=== PATIENT | male | born 1955 | race African-American/Black ===

== ENCOUNTER → 2016-08-27 | Outpatient (CLI) | payer OTHER ==
--- NOTE | 2016-08-27 15:51 | Diagnostic Imaging Report ---
Indications: Neck pain, right-sided weakness, status post multilevel cervical fusion one day prior Technique: Sagittal STIR and T1-weighted FLAIR, sagittal and axial T2-weighted fast spin echo , and axial COSMIC ASPIR sequences of the cervical spine were performed without gadolinium administration. Findings: Comparison: None Fusion hardware is present within the C3-4 through C6-7 disc spaces. These levels are bridged by fixation plate and multiple anchoring screws anteriorly. Bilateral pedicle screws are present from C3-C7. Laminectomy defects are present from C3-C7. Cervical vertebrae are normally aligned. Marrow signal is difficult to assess due to artifact from metallic fusion hardware. The overlying prevertebral and posterior paraspinous soft tissues are mildly edematous. The spinal canal appears diffusely, congenitally narrowed. There is no focal point of narrowing at any level. 2 mm sharply defined focus of increased signal is present within the right side of the spinal cord at the C3-4 level. 7 mm lobular circumscribed focus of increased signal is present throughout much of the right side of the spinal cord at the level of C5. There is suggestion of mild expansion of this portion of the cord at this level. The cord is abutted ventrally at C3-4 but not obviously compressed. It does not appear compressed at any additional imaged levels. No extradural mass or fluid collection identified. Impression: Evidence of anterior-posterior fusion C3-C7. Adjacent soft tissue edema within normal limits for recent postsurgical state. Diffuse congenital spinal stenosis without obvious focal cord compression 7 mm globular focus of signal hyperintensity within the right side of the cord at the C5 level with possible mild cord expansion. No prior examinations available for comparison. This nonspecific and could represent edema from contusion or ischemia/infarct. Inflammatory, chronic ischemic or demyelinating lesion less likely. Mass less likely, though not entirely excludable. Small discrete focus of signal change in right-sided cord at C3-4, chronic in appearance, may be secondary to previous infarct, chronic sequela of previous compression, or demyelination. Findings discussed with Dr. Ceja, ordering surgeon, in person at time of this dictation
--- NOTE | 2016-08-27 16:14 | Diagnostic Imaging Report ---
Indications: New-onset right-sided weakness, status post multilevel cervical fusion one day prior Technique: Continuous helical CT imaging of the neck was performed with automatic exposure control, following bolus intravenous administration of nonionic iodine contrast a rate of 4 cc/sec, on a Siemens sensation [address] scanner. Axial images were reconstructed at 5 mm slice thickness and interval. Thin section axial data set was reconstructed at one mm slice thickness. Coronal and sagittal images were reconstructed at one mm slice thickness. Three-dimensional volume rendered images were reconstructed on a stand alone workstation. CTDI volume(s): 17x5, 132, 69 mGy Total DLP: 2935 mGy-cm Findings: Comparison: None Artifact from the patient's body habitus and cervical fusion hardware significantly degrades multiple images, limiting evaluation. Aortic arch patent and well-opacified, normal in caliber and configuration. Great vessels emanate from the arch normal order. Origin of left common carotid artery completely obscured. Right brachiocephalic artery, proximal aspects of right common carotid, bilateral subclavian arteries partially obscured. Origins of multiple segments of bilateral vertebral arteries completely obscured. Where unobscured, the bilateral common carotid and vertebral arteries are patent and well-opacified, normal caliber in configuration. Bilateral internal and external arteries are likewise patent and well-opacified, normal in caliber and configuration. Where unobscured, no evidence of stenosis, dissection, or other intraluminal filling defect, aneurysm/pseudoaneurysm or other abnormality. Impression: Negative cervical CT angiogram, with limitations as described
--- NOTE | 2016-08-27 16:23 | Diagnostic Imaging Report ---
Indications: Right-sided weakness Technique: Sagittal and axial T1 weighted FLAIR, axial T2-weighted fat saturated fast spin echo propeller, T2-weighted FLAIR, T2*-weighted gradient echo, and diffusion sequences of the brain were performed without IV gadolinium administration. Findings: Comparison: None Patient's body habitus degrades image quality, limiting evaluation. Patchy, partially confluent foci of T2 signal hyperintensity scattered throughout bilateral cervical periventricular and deep white matter. Similar foci in flako.. No evidence of mass or hemorrhage, other signal abnormality, mass effect, midline shift, hydrocephalus, or increased intracranial pressure. No restricted diffusion. Central vascular flow voids are preserved. Mild mucoperiosteal thickening throughout visualized paranasal sinuses. IMPRESSION: No evidence of acute intracranial pathology Multifocal white matter signal changes described, nonspecific, likely chronic microvascular ischemic Mild sinusitis.
--- NOTE | 2016-08-30 09:07 | Diagnostic Imaging Report ---
Indications: New-onset right-sided weakness, one day status post multilevel cervical fusion Technique: Continuous helical CT imaging of the cervical spine was performed with automatic exposure control on a Siemens sensation [address] scanner. Axial images were reconstructed at 3 mm slice thickness and interval. Coronal and sagittal images were reconstructed at 3 mm slice thicknesses. CTDI volume(s): 17x5, 132, 69 mGy Total DLP: 2935 mGy-cm (Includes CTA neck) Eyes: Comparison: None Lordotic curvature straightened. Vertebral and intact. Fusion hardware within and across the anterior margin of C3-4 through C6-7 disc spaces. Bilateral pedicle screws C3-C7 bridged by longitudinal rods bilaterally. Multiple laminotomy/laminectomy defects at these levels. Artifact from fusion hardware degrades the spinal canal, cervical vertebrae and surrounding soft tissues at levels treated. Spinal canal appears diffusely, congenitally narrowed. The obscured the surrounding soft tissues contain gas but no obvious mass or loculated fluid collections. Posterior skin berta are present. Small percutaneously placed drainage catheter resides within the prevertebral soft tissues at the C2-3 level. IMPRESSION: Evidence of recent anterior-posterior fusion C3-C7 with postsurgical changes as described. Vertebral alignment is intact. No obvious acute bony or soft tissue abnormality otherwise, limited by artifact.
== END | disposition home or self-care (01) ==
LOC: MRI 12:58
DX: S06.2X0A Diffuse traumatic brain injury without loss of consciousness, initial encounter (principal); X58.XXXA Exposure to other specified factors, initial encounter; Y93.9 Activity, unspecified; Y92.9 Unspecified place or not applicable; R53.1 Weakness; J01.90 Acute sinusitis, unspecified; M48.02 Spinal stenosis, cervical region
CPT/HCPCS: 70498; 70551; 72125; 72141; Q9967